=== PATIENT | female | born 1960 | race Caucasian/White ===

== ENCOUNTER → 2017-11-24 08:43 | Outpatient (CLI) | payer MEDICARE, SELFPAY ==
[2017-11-24 10:12] LABS: Anion Gap 9 (5-15); BUN 21 mg/dL (7-18); BUN/Creat Ratio 16.7 RATIO (10-20); Calcium,Total 8.7 mg/dL (8.5-10.1); Chloride 105 mmol/L (98-107); Creatinine, Serum 1.26 mg/dL (0.55-1.02); EST Glomerular Filtration Rate 46 mL/min (>60); Est Glom Filt Rate - Afr Amer 56 mL/min (>60); Glucose 127 mg/dL (74-106); Potassium 4.1 mmol/L (3.5-5.1); Sodium Level 141 mmol/L (136-145)
== END ==
PROVIDERS: Family Provider Student in an Organized Health Care Education/Training Program; PCP Student in an Organized Health Care Education/Training Program; Visit Provider Surgery
DX: Z01.818 Encounter for other preprocedural examination (principal)
CPT/HCPCS: 36415; 80048

== ENCOUNTER → 2017-12-11 11:41 | Outpatient (CLI) | payer MEDICARE, MEDICAID, SELFPAY ==
--- NOTE | 2017-12-11 11:42 | CT_ITS ---
STUDY: CTA NECK WITH CONTRAST REASON FOR EXAM: Female, 57 years old. Left carotid stenosis. Episode of syncope and dizziness. Prior smoking history. RADIATION DOSAGE (If Supplied By Facility): CTDIvol = ( 20.13 ) mGy, DLP = ( 563.44 ) mGycm TECHNIQUE: CT angiography with multi-detector data acquisition was performed from the aortic arch to the skull base following intravenous administration of 100 ml of Isovue 370 contrast. MIP images were reconstructed from the axial data set. Post-processing of the angiographic images was performed, with multiplanar reformation and 3D reconstruction. Individualized dose optimization techniques were used for this CT. COMPARISON: None. FINDINGS: AORTIC ARCH: There is atherosclerotic calcific plaque formation of the aortic arch and great vessels arising from the aortic arch, without a hemodynamically significant stenosis. There is a normal origin of the brachiocephalic, left common carotid, and left subclavian arteries. There is atherosclerotic changes at the origin of the great vessels. RIGHT CAROTID ARTERIES: There is calcified plaque along the course of the right common carotid artery without significant stenosis. Marked atherosclerotic changes of the carotid bifurcation and carotid bulb with greater than 70% stenosis. Normal origin of the right internal carotid (ICA) artery without a hemodynamically significant stenosis. Normal visualized cervical portion of the right internal carotid artery. There is narrowing of the origin of the right external carotid artery. LEFT CAROTID ARTERIES: There calcified plaques along the course of the left common carotid artery with less than 50% stenosis. There is an approximate 50% stenosis of the distal common carotid artery. There is extensive atherosclerotic plaque at the bifurcation extending into the carotid bulb with approximate 70% stenosis. Normal origin of the left internal carotid (ICA) artery without a hemodynamically significant stenosis. Normal visualized cervical portion of the left internal carotid artery. There is stenosis of the origin of the external carotid artery. VERTEBRAL ARTERIES: Normal bilateral vertebral arteries. CT/CTA Neck W/WO Contrast IMPRESSION: 1. Greater than 70% stenosis of the right carotid bulb and bifurcation. 2. Approximate 70% stenosis of the left carotid bulb and bifurcation. 3. Hemodynamically insignificant calcified plaque along the course of both common carotid arteries. 4. Stenoses of the bilateral external carotid arteries. 5. Normal vertebral arteries. Electronically Signed: Cayden Zuluaga DO at 17:21 EDT Tel [phone], Service support ,
[2017-12-11] MEDS: 0.9% Normal Saline 1,000 ML 500 ML IV (12:55)
[2017-12-11 14:25] VITALS: BP 168/66; PULSE 58; RESP 18; O2SAT 95
== END ==
PROVIDERS: Family Provider Student in an Organized Health Care Education/Training Program; PCP Student in an Organized Health Care Education/Training Program; Visit Provider Surgery
DX: I65.23 Occlusion and stenosis of bilateral carotid arteries (principal)
CPT/HCPCS: 70498; J7030; Q9967; A4216

== ENCOUNTER 2017-12-29 09:21 | Emergency (ER) | payer MEDICARE, MEDICAID, SELFPAY ==
[2017-12-29 09:24] VITALS: BP 108/61; PULSE 63; RESP 15; TEMP 36.7; O2SAT 93; BMI 35.9
--- NOTE | 2017-12-29 09:36 | ED.VISSUMM ---
- ER Visit Summary Date of Service: 12/29/17 Chief Complaint: Dizziness, headache History of Present Illness: The patient is a 57 F who is been having dizziness for the past couple of months. She states yesterday she did not feel well and had these dizzy episodes. She also had a fever of 102?F last night. She states that she has these dizzy episodes about once a week. She has been seeing Dr. Burch and he is decided to do a carotid endarterectomy of the left internal carotid. She had a CTA which showed about 70% stenosis. She saw him and he remarked in his note that he is not quite sure that the carotid arteries or the etiology of her dizziness but he still decided to go forward with surgery on January 09. She states this all started when she had a dizzy episode and had a syncopal episode while shopping. Currently she denies a cough or dysuria. She has had urinary frequency. Also of note, the patient took a whole pill of her carvedilol this morning when she only should take a half. Physical Examination: Vital signs reviewed. Blood pressure is 108/61. HEENT exam unremarkable. Heart is regular rate and rhythm without murmurs. Lungs are clear to auscultation. Abdomen is soft and nontender. Extremities reveal no edema. Skin exam normal. Neurologic exam normal. Test Results: CBC shows hemoglobin of 10.7. Sodium 135, chloride 95. Glucose 241. Creatinine 1.5. Urinalysis negative for infection. Emergency Department Course and Treatment: Patient was hydrated with IV fluids. Her blood pressure remained normal. The etiology of her dizziness is unclear. It could be from the carotids which is why she is seeing Dr. Burch. It could also be from overmedicating her self with anti-hypertensives. She will need to take her prescribed doses. She will also follow-up for her surgery on 11 days. Treatment Plan: [] Disposition: Discharge Impression: Dizziness This note was generated with [employer] dictation software. It may contain incorrect words, spelling, and punctuation that were not noted in review of the chart prior to signing ED Disposition - Plan for ED Patient: Chief Complaint: Dizziness Referrals: Jack Juarez DO [Primary Care Provider] -
[2017-12-29 10:20] LABS: BUN 18 mg/dL (7-18); Glucose 241 mg/dL (74-106)
[2017-12-29 10:21] LABS: Absolute Lymphocyte Count 1.23 X10^3/ul (0.83-4.51); Absolute Neutrophil Count 7.2 X10^3/uL (2.0-7.7); Anion Gap 15 (5-15); Basophil# 0.02 X10^3/uL; Basophil% 0.2 % (0-1); Calcium,Total 8.3 mg/dL (8.5-10.1); Chloride 95 mmol/L (98-107); Differential Indicated SCAN CRITERIA MET; EST Glomerular Filtration Rate 38 mL/min (>60); Est Glom Filt Rate - Afr Amer 46 mL/min (>60); Hematocrit 34.8 % (37-47); Hemoglobin 10.7 g/dl (12.0-15.0); Lymphocyte # 1.23 X10^3/ul (4.0); Lymphocyte % 13.1 % (19-41); Mean Corp Hgb Conc 30.7 g/gl (32-36); Mean Corpuscular Hgb 24.5 pg (27.0-32.0); Mean Corpuscular Volume 79.8 fL (81-99); Mean Platelet Vol. 9.6 fl (6.2-12.0); Monocyte# 0.95 X10^3/uL; Monocyte% 10.1 % (0-10); Neutrophil % 76.4 % (47-70); POSITIVE COUNT NO; POSITIVE DIFFERENTIAL NO; POSITIVE MORPHOLOGY YES; Platelet Count 199 K/mm3 (150-450); Potassium 3.7 mmol/L (3.5-5.1); RBC Distribution Width CV 17.7 % (11.6-14.6); RBC Distribution Width SD 51.9 fl (35.1-43.9); Red Blood Count 4.36 M/mm3 (4.2-5.4); Sodium Level 135 mmol/L (136-145); White Blood Count 9.4 K/mm3 (4.4-11.0)
[2017-12-29 11:47] VITALS: BP 118/50; PULSE 71; RESP 15; O2SAT 96
[2017-12-29 11:55] LABS: Red Blood Cells-Urine 0 SEEN /hpf (0-5)
[2017-12-29 11:58] LABS: Color, Urine Yellow (Yellow); Glucose, Dipstick 250 mg/dl (Normal); Ketone-Dipstick Negative (Negative); Leukocyte Esterase-Dipstick 25 /ul (Negative); Nitrite-Dipstick Negative (Negative); Occult Blood-Urine Negative /ul (Negative); Protein-Dipstick 15 mg/dl (Negative); Urine Clarity Sl. Cloudy (Clear); Urine Urobilinogen Normal (Normal)
[2017-12-29 11:59] LABS: Urine Bilirubin Dipstick 1 mg/dL (Negative)
[2017-12-29 12:06] LABS: Bacteria RARE /hpf (None Seen); Hyaline Cast 5-10 SEEN /lpf (0-5); Mucous, Urine 1+ /hpf (<or=2+); Squamous Epithelial Cells - UA 0-5 SEEN /hpf (5-10); White Blood Cells 0-5 SEEN /hpf (0-5)
--- NOTE | 2017-12-29 12:21 | ED.DEP ---
ED Disposition - Plan for ED Patient: Disposition: Home or Assisted Living Chief Complaint: Dizziness Instructions: ED Dizziness [facility] Referrals: Jack Juarez DO [Primary Care Provider] -
[2017-12-29 12:26] VITALS: BP 115/79; PULSE 65; RESP 15; O2SAT 96
== END 2017-12-29 12:27 | disposition home or self-care (01) ==
PROVIDERS: Emergency Provider Emergency Medicine; Family Provider Student in an Organized Health Care Education/Training Program; PCP Student in an Organized Health Care Education/Training Program
DX: R42 Dizziness and giddiness (principal); I10 Essential (primary) hypertension; Z79.82 Long term (current) use of aspirin; Z79.899 Other long term (current) drug therapy
CPT/HCPCS: 80048; 81001; 85025; 99283; J7040; A4216

== ENCOUNTER 2018-01-07 10:05 | Day surgery (SDC) | payer MEDICARE, SELFPAY ==
[2018-01-07] VITALS (7 sets, daily range): BP systolic 84–182; BP diastolic 45–112; PULSE 56–60; RESP 16–18; TEMP 36.3–36.9; O2SAT 91–100; BMI 35.9
--- NOTE | 2018-01-07 | IMM_PTH ---
PATIENT: NASIM OLIVA LOC: EN U#:[id number] AGE/SX: 57/F ROOM: RE01/07/[address]: Dr. Mario Burch MD : 1960 BED: DIS: 01/07/2018 SPEC #: [id number] RECD: 01/08/18 11:17 STATUS: JASON REEdyta #: [id number] HAFSA: 01/07/18 00:[address]: Mario Burch DEPT: IMMUNOHISTOCHEMISTRY RECD BY: Angela Palacio ENTERED: 01/08/18 11:18 SP TYPE: IMMUNO OTHR DR: Dr. Jack Juarez DO Tissues: A - Stomach, NOS Procedures: H Pylori (initial) PHYSICIAN & INSTITUTION [place] [address] SPECIMEN INFORMATION: Tissue Source: A ? Antral biopsy Clinical Info: Anemia Specimen Number: [id number] CPT code: 72440 METHODOLOGY: Deparaffinized sections of prefer/formalin-fixed tissue or PAP/DQ stained slides are incubated with monoclonal/polyclonal antibodies/oligonucleotide probes. Localization is made via biotin free immunoperoxidase method. Appropriate controls are performed and reacted as expected. Results on target cell population are indicated in the following table: RESULTS: ANTIBODY / CLONE RESULT Block A H Pylori (polyclonal) negative These tests were developed and their performance characteristics determined by [facility]. They may not have been cleared or approved by the U.S. Food and Drug Administration. The FDA has determined that such clearance or approval is not necessary. INTERPRETATION: A. Antral biopsy: Negative for Helicobacter pylori organisms. SJ:akin 01/09/18
--- NOTE | 2018-01-07 | GASB_PTH ---
PATIENT: NASIM OLIVA LOC: EN U#:[id number] AGE/SX: 57/F ROOM: RE01/07/[address]: Dr. Mario Burch MD : 1960 BED: DIS: 01/07/2018 SPEC #: [id number] RECD: 01/07/18 14:41 STATUS: JASON CLIVE #: [id number] HAFSA: 01/07/18 00:[address]: Mario Burch DEPT: SURGICAL PATHOLOGY RECD BY: Rudolph Elias ENTERED: 01/07/18 14:42 SP TYPE: Gastric Bx OTHR DR: Dr. Jack Juarez, Tissues: A - Gastric mucous membrane B - Gastric mucous membrane Procedures: Surgery Specimen Level IV HEADER OPERATION: Colonoscopy, EGD PRE-OP DIAGNOSIS: Anemia TISSUE SUBMITTED: A ? Antral biopsy for H. pylori and path, B ? Gastric polyp biopsy MICROSCOPIC DIAGNOSIS A. Antral biopsy: Mild gastritis. B. Gastric polyp, biopsy: Fundic gland polyp. ALDAIR:akin 01/08/18 COMMENT A. The results of immunohistochemistry for Helicobacter pylori will be reported separately ([id number]). MICROSCOPIC DESCRIPTION Slides are reviewed. A. The specimen shows fragments of gastric mucosa with chronic inflammatory cell infiltrates in the lamina propria consisting of lymphocytes and plasma cells, consistent with mild chronic gastritis. GROSS DESCRIPTION A - Received in fixative is one container labeled with the patient's name and designated antral biopsy. The specimen consists of one irregular fragment of light lopez soft tissue that measures 0.3 x 0.3 x 0.1 cm. The specimen is totally submitted in one cassette. B - Received in fixative is one container labeled with the patient's name and designated gastric polyp biopsy. The specimen consists of one irregular fragment of light lopez soft tissue that measures 0.3 x 0.3 x 0.1 cm. The specimen is totally submitted in one cassette. / SJ:akin 01/07/18 TC:3 CPT: 80238 x2
--- NOTE | 2018-01-07 10:54 | SUR.PREOP ---
500ML SALINE ENEMA GIVEN DUE TO PT NOT CLEAR
--- NOTE | 2018-01-07 13:03 | PCM.OPRPT ---
Problem List (1) Anemia Status: Acute Qualifiers: Anemia type: unspecified type Qualified Code(s): D64.9 - Anemia, unspecified Report of Operation Date of Procedure: 01/07/18 Pre-Operative Diagnosis: Carotid stenosis, preoperative laboratory demonstrating anemia Post-Operative Diagnosis: Carotid stenosis, anemia of undetermined etiology Surgery/Procedure Performed:: Esophagogastroduodenoscopy with biopsies cold forcep. Colonoscopy Description of Surgical Findings:: Amount informed consent was obtained. 57-year-old female taken to the endoscopy suite. Her oropharynx anesthetized with Topex. She was placed in left lateral decubitus position. Throughout both the upper and lower procedure she received a total of 100 g Demerol and 3.5 g of Versed is intravenous sedation. Flexible gastroscope was inserted into the esophageal inlet. Proximal mid distal esophagus not remarkable EG junction at 36 cm a small hiatal hernia noted. No evidence of bleeding. The scope was advanced in the stomach minimal erythema of the antrum noted. Scope was advanced through the pylorus into the first and easily the second portions of the duodenum no evidence of blood loss. The scope was withdrawn back into the stomach retroflexed the EG junction cardia inspected. A small hiatal hernia noted. The cardia was otherwise unremarkable. Greater curvature had scattered fundic polyps. I readvanced the scope took an antral biopsy with cold forceps. I took a biopsy of 1 of the polyps cold forceps. Hemostasis was intact excess fluid and air was aspirated free the scope was carefully withdrawn without additional abnormality Digital rectal exam performed. Lax anal tone. No evidence of bleeding. Flexible consequence of the rectum and advanced to a tortuous elongated colon. The patient had to be placed supine with transabdominal pressure and then in the left lateral decubitus position again to get past the hepatic flexure. Fortunately I was able to achieve the cecum. Unfortunate the bowel prep was only fair. Small polyps may have been overlooked due to still some semisolid stool located throughout the colon. I did achieve the cecum. I did not see any evidence of acute or chronic bleeding. The scope was carefully withdrawn from the ascending transverse descending and sigmoid colon. Where possible I irrigated the cuellar for better inspection. There was diverticulosis of the sigmoid. No evidence of a inflammatory change. The scope was withdrawn to the rectum retroflex the anorectal verge inspected this was not remarkable. Excess fluid and air was aspirated free the procedure was completed she tolerated it well. Impression Small hiatal hernia. Minimal antral erythema. No evidence for upper gastrointestinal blood loss. Fair bowel prep. Tortuous elongated colon. Sigmoid diverticulosis. We will proceed with planned carotid endarterectomy Will recommend follow-up colonoscopy in 1-2 years based upon the only fair bowel prep. Previous colonoscopy according to the patient at least 5-10 years ago. No family history of colon cancer. Meds were given initially at 1228. The upper scope started at 1231. The upper scope stopped at 1233. The lower scope started at 1237. The cecum was reached at 1253. The procedure was completed at 1300. CC: Dr. Larry Burch M.D., F.A.C.S. Type of Anesthesia:: IV Sedation
[2018-01-08 08:06] LABS: Bedside Glucose 143 mg/dL (70-110)
== END 2018-01-07 13:58 | disposition home or self-care (01) ==
LOC: EN 10:05 → AC 10:07
PROVIDERS: Family Provider Student in an Organized Health Care Education/Training Program; PCP Student in an Organized Health Care Education/Training Program; Visit Provider Surgery
PROC: 0DJD8ZZ Inspection of Lower Intestinal Tract, Via Natural or Artificial Opening Endoscopic (ICD-10-PCS; CPT 45378; principal; 2018-01-07 11:25)
DX: K29.50 Unspecified chronic gastritis without bleeding (principal); K31.7 Polyp of stomach and duodenum; K44.9 Diaphragmatic hernia without obstruction or gangrene; K57.30 Diverticulosis of large intestine without perforation or abscess without bleeding; K56.2 Volvulus; D64.9 Anemia, unspecified; I65.23 Occlusion and stenosis of bilateral carotid arteries; K21.9 Gastro-esophageal reflux disease without esophagitis; I10 Essential (primary) hypertension; E11.9 Type 2 diabetes mellitus without complications; F32.9 Major depressive disorder, single episode, unspecified; F41.9 Anxiety disorder, unspecified; H54.62 Unqualified visual loss, left eye, normal vision right eye; Z95.1 Presence of aortocoronary bypass graft; Z95.5 Presence of coronary angioplasty implant and graft; Z79.01 Long term (current) use of anticoagulants; Z79.82 Long term (current) use of aspirin; Z79.4 Long term (current) use of insulin; Z79.84 Long term (current) use of oral hypoglycemic drugs; Z79.899 Other long term (current) drug therapy
CPT/HCPCS: 43239; 45378; 82962; 88305; 88342; 99152; 99153; J7120

== ENCOUNTER 2018-01-09 05:55 | Inpatient (IN) | payer MEDICARE, MEDICAID, SELFPAY ==
[2018-01-02 13:22] VITALS: BP 155/73; PULSE 51; RESP 16; TEMP 36.4; O2SAT 96; BMI 35.5
[2018-01-02 13:49] LABS: Hematocrit 33.9 % (37-47); Hemoglobin 10.8 g/dl (12.0-15.0); Mean Corp Hgb Conc 31.9 g/gl (32-36); Mean Corpuscular Hgb 25.5 pg (27.0-32.0); Mean Platelet Vol. 9.6 fl (6.2-12.0); Platelet Count 245 K/mm3 (150-450); RBC Distribution Width CV 17.6 % (11.6-14.6); RBC Distribution Width SD 50.6 fl (35.1-43.9); Red Blood Count 4.24 M/mm3 (4.2-5.4); White Blood Count 5.3 K/mm3 (4.4-11.0)
[2018-01-02 13:54] LABS: Scan Indicated on CBC? Y/N NO
[2018-01-02 14:10] LABS: Anion Gap 6 (5-15); BUN 12 mg/dL (7-18); BUN/Creat Ratio 10.6 RATIO (10-20); Calcium,Total 8.8 mg/dL (8.5-10.1); Chloride 103 mmol/L (98-107); Creatinine, Serum 1.13 mg/dL (0.55-1.02); EST Glomerular Filtration Rate 53 mL/min (>60); Est Glom Filt Rate - Afr Amer 64 mL/min (>60); Estimated Creatinine Clearance 46.86 ml/min; Glucose 115 mg/dL (74-106); Potassium 4.1 mmol/L (3.5-5.1); Sodium Level 139 mmol/L (136-145)
[2018-01-02 14:18] LABS: Hemoglobin A1c 7.6 % (4.2-6.3)
[2018-01-09] VITALS (35 sets, daily range): BP systolic 87–226; BP diastolic 45–102; PULSE 58–82; RESP 16–18; TEMP 36.1–36.9; O2SAT 92–100; BMI 35.5; BMI 36.4
[2018-01-09 06:25] LABS: Bedside Glucose 199 mg/dL (70-110)
--- NOTE | 2018-01-09 06:57 | PCM.DC.GS ---
Discharge Diet: Light diet - advance as tolerated - if you have questions about your diet instructions, please talk to you doctor., 1600 Calorie Control Diet Discharge Activity: May Not Drive - for 1 week or while taking narcotic pain medicine. May shower in (days): 3 - You may shower on Sunday Lifting Restrictions: 10 pounds Call your doctor if your incision/area has: Continuous Slow Oozing, Sudden Increased Bleeding, Increased Pain/ Swelling, Increased Redness, Foul Smelling Discharge Call your doctor if you observe: Fever of 101 or Higher Suture Line Care: Avoid Pulling/Pushing, Avoid Pinching/Bending Additional Dressing/Incision Instructions:: You may protect the incision with dry gauze and tape. If otherwise comfortable you may leave it open to air. Remove the Steri-Strips in [address] Allergies/Adverse Reactions: Allergies clindamycin Allergy (Mild, Verified 01/09/18 06:06) Unknown milk Adverse Reaction (Verified 01/09/18 06:06) Unknown Medications to take at Discharge aspirin 81 mg tablet,delayed release 81 mg PO QDAY 11/24/17 atorvastatin 40 mg tablet 40 mg PO QDAY 11/24/17 clopidogrel 75 mg tablet 75 mg PO QDAY 11/24/17 enalapril maleate 20 mg tablet 20 mg PO BID tab 11/24/17 fluoxetine 40 mg capsule 40 mg PO QDAY 11/24/17 hydrochlorothiazide 25 mg tablet 25 mg PO QAM 11/24/17 isosorbide mononitrate ER 60 mg tablet,extended release 24 hr 60 mg PO QAM 11/24/17 metformin 500 mg tablet 500 mg PO BID 11/24/17 oxybutynin chloride 5 mg tablet 5 mg PO TID 11/24/17 ranolazine ER 500 mg tablet,extended release,12 hr 500 mg PO Q12H 11/24/17 carvedilol 12.5 mg tablet 6.25 mg PO BID tab 12/19/17 Alprazolam [Xanax] 0.5 mg PO QHS 12/29/17 Bupropion HCl 75 mg PO BID 12/29/17 Insulin Glargine,Hum.rec.anlog [Lantus] 40 unit SQ 1200 12/29/17 Lansoprazole [Prevacid] 30 mg PO DAILY 12/29/17 Hydrocodone Bitart/Apap 5-325 [[place] 5MG-325MG] 1 tab PO Q6H PRN PRN 3 Days #8 tab 01/09/18 The following prescriptions were given: Hydrocodone Bitart/Apap 5-325 [[place] 5MG-325MG] 1 tab PO Q6H PRN PRN 3 Days #8 tab PRN Reason: Pain Primary Care Physician: Jack Juarez DO [Primary Care Provider] - Test Results: Test results from this visit will be discussed in further detail at your follow-up appointment, if applicable. Please Follow Up With: Maroi Burch MD - [phone] When: Call to make an appointment to be seen in about 10 days.
--- NOTE | 2018-01-09 07:00 | OP.PCM_ITS ---
Problem List (1) Carotid stenosis, bilateral Status: Acute Report of Operation Date of Procedure: 01/09/18 Pre-Operative Diagnosis: Severe stenosis left extracranial internal carotid Post-Operative Diagnosis: Same Surgery/Procedure Performed:: Right radial arterial line placement. Left carotid endarterectomy with bovine patch angioplasty Description of Surgical Findings:: Timeout and informed consent was obtained. 57-year-old female at the bedside had an Kevyn test performed on the right wrist. This demonstrated adequate ulnar flow. The wrist was gently extended prepped with Betadine. Ultrasound was used to inject 1 cc of 1% lidocaine. A 20-gauge aero kit Angiocath under ultrasound guidance was advanced into the artery was Seldinger wire technique was nicely advanced. The catheter was secured skin with interrupted 3-0 silk. OpSite dressing applied. Tito wrap applied. She tolerated the procedure well with a viable hand the completion no apparent complication. She is subsequently taken to the operating for definitive left carotid surgery. The patient was taken to the operating room. She was placed supine on the table. General general endotracheal intubation anesthesia. Ancef 2 g are given intravenously preoperatively. The left neck was sterilely prepped and draped. An oblique incision was made along the anterior border the sternocleidomastoid. Sharp dissection was carried down through the subcutaneous tissue. Dissection was tedious due to the amount of fibrofatty tissue and lymphatic tissue. Hemostasis was obtained with multiple hemoclips and 3-0 Vicryl ligatures were indicated. The internal jugular vein identified reflected laterally. Crossing facial veins were secured with interrupted 3-0 Vicryl. The common carotid was identified dissected free the vagus nerve identified and protected. Cephalad dissection was performed. The hypoglossal nerve identified and protected. Dissection performed on the internal carotid and then circumferential dissection was achieved. A Dacron tape and the bowel was placed. Circumferential dissection was performed of the external carotid and a vessel loop was placed. The superior thyroid was secured with a Field tie of 3-0 Vicryl. Circumferential control was obtained of the common carotid with a Field tie of Dacron tape. The patient received 10,000 units of heparin. After adequate circling time peripheral vascular clamps are placed on the internal common and external carotid 11 blade was used to make an arteriotomy the plaque at the proximal portion of the internal carotid and carotid bulb was highly calcific. Significant effort was required use Field scissors to dissect through this area. A #8 USCI style shunt was placed cephalad and proximally. Attention would not fit. Time to place the shunt was 3 minutes. It was noted that C proximally did dip below 20% level during that 3 minutes but then immediately rebounded. The shunt was clearly patent. An endarterectomy was performed the layer of the external elastic lamina. The plaque was sharply transected proximally. It was nicely feathered at the internal carotid. A inversion endarterectomy was performed of the external carotid. Further debris was carefully removed. The vessel was irrigated. A bovine patch 0.8 x 8 cm was used as a patch angioplasty. It was shaped to form and a patch angioplasty created with running 6-0 Prolene. Prior to completion again the vessel was irrigated the shunt was removed the patch angioplasty was completed after confirmation of good retrograde flow from the internal carotid good antegrade flow from the external carotid and common carotid. Initial clamps removed external carotid common carotid find the internal carotid. A couple repair sutures of 7-0 Prolene were required for complete hemostasis. Time for shunt removal was 3 minutes and 6 seconds. The patient cerebral oximetry did dip again during that time and immediately rebounded. The patient received in aliquots total 30 mg of protamine his reversal. The patient preoperatively was on aspirin and Plavix. She still had diffuse oozing. I placed FloSeal in the neck this assisted with achieving complete hemostasis. The neck was then closed with a running 3-0 Vicryl approximate the platysma. The skin edges proximate running septic or 5-0 Vicryl. The kaelyn- incisional areas anesthetized with 10 cc of 0.5% Marcaine. Steri-Strips Telfa tape dressings applied. Sponge and instrument and needle counts were reported to the surgeon to be correct. Specimens plaque. Drains none. Blood loss 200 cc. She awoke was felt to be neurologically intact on the table. She was taken to the recovery area in satisfactory condition. There were no apparent complications. Mario Burch M.D., F.A.C.S.
--- NOTE | 2018-01-09 07:15 | PLAQ_PTH ---
PATIENT: NASIM OLIVA LOC: PCU U#:[id number] AGE/SX: 57/F ROOM: [facility] RE01/09/[address]: Dr. Mario Burch MD : 1960 BED: 1 DIS: 01/10/2018 SPEC #: [id number] RECD: 01/09/18 13:53 STATUS: JASON RE #: [id number] HAFSA: 01/09/18 07:[address]: Mario Burch DEPT: SURGICAL PATHOLOGY RECD BY: Lisa Ng ENTERED: 01/09/18 14:20 SP TYPE: PLAQUE OTHR DR: Dr. Jack Juarez, Tissues: PLAQUE Procedures: Decalcification bone/plaque Surgery Specimen Level III HEADER OPERATION: Left carotid endarterectomy with patchy angioplasty and arterial line placement PRE-OP DIAGNOSIS: Carotid stenosis TISSUE SUBMITTED: Plaque left carotid MICROSCOPIC DIAGNOSIS Left carotid artery plaque, endarterectomy: Calcified atheromatous plaque consistent with severe stenosis. AM:akin 01/16/18 GROSS DESCRIPTION Received in fixative is one container labeled with the patient's name and designated plaque left carotid. The specimen consists of a Y-shaped piece of previously opened, lopez, indurated tissue measuring 2.5 cm in length and up to 1 cm in diameter. The specimen cuts with gritty sensation. The lumen shows almost complete obliteration. The entire specimen is submitted in one cassette after decalcification. / SJ:akin 01/09/18 TC:5 CPT: 73321, 85848
[2018-01-09] MEDS: Cefazolin 2 GM in 0.9% Normal Saline 100 ML IV (07:20)
[2018-01-09] MEDS: Heparin Injection (Vial) 5,000 UNIT/ML VIAL 5000 UNIT (09:00)
[2018-01-09] MEDS: Bupivacaine Mpf 0.5% 30 ML VIAL (09:36)
[2018-01-09 10:51] LABS: Bedside Glucose 184 mg/dL (70-110)
--- NOTE | 2018-01-09 11:17 | SUR.PHASEI ---
PRESSURE HELD TO LEFT NECK OPERATIVE SITE BY RN FOR APPROXIMATELY [address] Benjamin MOSHER.
[2018-01-09] MEDS: Isosorbide Mononitrate 60 MG Tablet PO (11:21)
[2018-01-09] MEDS: Lactated Ringers 1,000 ML 30 ML IV (16:36)
[2018-01-09] MEDS: Cefazolin 1 GM/50 ML BAG IV ×2 (16:48→23:41)
--- NOTE | 2018-01-09 17:30 | CASEMGMT ---
SEE RN WILLIAM ASSESS LINK: D/C PLAN: HOME Intro role to RN WILLIAM. Pt resting in bed, awake/alert/oriented. Pt states is independent @ home w/ADL's, occaionally using a cane. Pt wishes to return home upon discharge. States she has concerns re: finances and medical bills and would like to talk to SW. Consult made. Pt denies other needs at this time. CM to follow for any discharge planning needs that may arise. Pranav MACHADON TANVI CM
[2018-01-09] MEDS: hydroCHLOROthiazide 25 MG Tablet PO (17:32)
[2018-01-09] MEDS: Atorvastatin Calcium 40 MG Tablet PO (17:32)
[2018-01-09] MEDS: Oxybutynin 5 MG Tablet PO ×2 (17:32→21:36)
[2018-01-09] MEDS: FLUoxetine 20 MG Capsule 40 MG PO (17:32)
[2018-01-09] MEDS: Aspirin E.C. 81 MG Tablet PO (17:32)
[2018-01-09] MEDS: Pantoprazole Sodium 40 MG Tablet PO (17:32)
[2018-01-09 17:46] LABS: Bedside Glucose 161 mg/dL (70-110)
--- NOTE | 2018-01-09 18:28 | PCM.CAROT ---
General Carotid Note - Subjective Post-Op Day #: 0 - Objective Vital Signs Temp Pulse Resp BP Pulse Ox 97.5 F L 63 18 94/48 L 92 01/09/18 17:28 01/09/18 17:28 01/09/18 17:28 01/09/18 17:28 01/09/18 17:28 Neck: Supple Neurological: Cranial nerves II-XII grossly intact - Assessment/Plan Pt appears very stable Continue care
[2018-01-09] MEDS: Ranolazine 500 MG Tablet PO (21:36)
[2018-01-09] MEDS: ALPRAZolam 0.5 MG Tablet PO (21:36)
[2018-01-09] MEDS: buPROPion 75 MG Tablet PO (21:36)
[2018-01-09 22:11] LABS: Bedside Glucose 172 mg/dL (70-110)
[2018-01-10 01:30] VITALS: BP 160/70; PULSE 74; RESP 18; TEMP 36.3; O2SAT 94
[2018-01-10 03:30] VITALS: BP 134/48; PULSE 69; RESP 18; TEMP 36.7; O2SAT 92
[2018-01-10 04:18] VITALS: PULSE 73
[2018-01-10] MEDS: Oxybutynin 5 MG Tablet PO (05:44)
--- NOTE | 2018-01-10 05:53 | PCM.CAROT ---
General Carotid Note - Subjective Post-Op Day #: 1 - Objective Vital Signs Temp Pulse Resp BP Pulse Ox 98.0 F 73 18 134/48 H 92 01/10/18 03:30 01/10/18 04:18 01/10/18 03:30 01/10/18 03:30 01/10/18 03:30 Neck: Supple, - - wound clean and dry Neurological: Cranial nerves II-XII grossly intact Cardiovascular: Regular rate, Regular Rhythm - Pt ready for discharge. Will follow up on anemia as outpt
[2018-01-10 06:56] LABS: Bedside Glucose 91 mg/dL (70-110)
[2018-01-10 06:57] VITALS: BP 153/59; PULSE 63; RESP 18; TEMP 36.4; O2SAT 93
[2018-01-10 07:31] VITALS: PULSE 60
[2018-01-10 07:45] VITALS: O2SAT 84
--- NOTE | 2018-01-10 08:14 | CPS ---
pt placed back on 1lpm. sat to 95% on 1. nurse aware of change
[2018-01-10] MEDS: Carvedilol 6.25 MG Tablet PO (09:33)
[2018-01-10] MEDS: hydroCHLOROthiazide 25 MG Tablet PO (09:33)
[2018-01-10] MEDS: Aspirin E.C. 81 MG Tablet PO (09:33)
[2018-01-10] MEDS: Isosorbide Mononitrate 60 MG Tablet PO (09:33)
[2018-01-10] MEDS: FLUoxetine 20 MG Capsule 40 MG PO (09:34)
[2018-01-10] MEDS: Pantoprazole Sodium 40 MG Tablet PO (09:34)
[2018-01-10] MEDS: Atorvastatin Calcium 40 MG Tablet PO (09:34)
[2018-01-10] MEDS: buPROPion 75 MG Tablet PO (09:35)
[2018-01-10] MEDS: Lisinopril 20 MG Tablet PO (09:35)
[2018-01-10] MEDS: Ranolazine 500 MG Tablet PO (09:35)
== END 2018-01-10 10:03 | disposition home or self-care (01) | DRG 37 ==
LOC: ACINP 05:55 → PCU 01-10 07:02
PROVIDERS: Admitting Provider Surgery; Family Provider Student in an Organized Health Care Education/Training Program; PCP Student in an Organized Health Care Education/Training Program; Visit Provider Surgery
PROC: 03CL0ZZ Extirpation of Matter from Left Internal Carotid Artery, Open Approach (ICD-10-PCS; CPT 35301; principal; 2018-01-09 06:55)
DX: I65.23 Occlusion and stenosis of bilateral carotid arteries (principal); K56.2 Volvulus; D64.9 Anemia, unspecified; Z79.899 Other long term (current) drug therapy; Z79.4 Long term (current) use of insulin; I10 Essential (primary) hypertension; Z87.891 Personal history of nicotine dependence; K29.50 Unspecified chronic gastritis without bleeding; K31.7 Polyp of stomach and duodenum; K44.9 Diaphragmatic hernia without obstruction or gangrene; K57.30 Diverticulosis of large intestine without perforation or abscess without bleeding; K21.9 Gastro-esophageal reflux disease without esophagitis; E11.9 Type 2 diabetes mellitus without complications; F32.9 Major depressive disorder, single episode, unspecified; F41.9 Anxiety disorder, unspecified; H54.62 Unqualified visual loss, left eye, normal vision right eye; Z95.5 Presence of coronary angioplasty implant and graft
CPT/HCPCS: 80048; 82962; 83036; 85027; 88304; 88305; 88311; 88342; 93005; 99152; 99153; J7040; J7120; A4216; J2405

== ENCOUNTER → 2018-01-18 11:16 | Outpatient (CLI) | payer MEDICARE, SELFPAY ==
[2018-01-18 11:46] LABS: Hematocrit 30.5 % (37-47); Hemoglobin 9.4 g/dl (12.0-15.0); Mean Corp Hgb Conc 30.8 g/gl (32-36); Mean Corpuscular Hgb 25.2 pg (27.0-32.0); Mean Corpuscular Volume 81.8 fL (81-99); Mean Platelet Vol. 9.3 fl (6.2-12.0); Platelet Count 284 K/mm3 (150-450); RBC Distribution Width CV 17.6 % (11.6-14.6); RBC Distribution Width SD 51.4 fl (35.1-43.9); Red Blood Count 3.73 M/mm3 (4.2-5.4); White Blood Count 4.7 K/mm3 (4.4-11.0)
[2018-01-18 11:50] LABS: Scan Indicated on CBC? Y/N NO
[2018-01-18 12:39] LABS: Ferritin 7 ng/mL (8-252); Iron 22 ug/dL (50-170); Iron Binding Capacity,Total 364 ug/dL (250-450)
== END ==
PROVIDERS: Family Provider Student in an Organized Health Care Education/Training Program; PCP Student in an Organized Health Care Education/Training Program; Visit Provider Surgery
DX: D64.9 Anemia, unspecified (principal)
CPT/HCPCS: 36415; 82728; 83540; 83550; 85027

== ENCOUNTER → 2018-01-24 08:18 | Outpatient (CLI) | payer MEDICARE, MEDICAID, SELFPAY | PROVIDERS: Family Provider Student in an Organized Health Care Education/Training Program; PCP Student in an Organized Health Care Education/Training Program; Visit Provider Surgery | DX: K57.10 Diverticulosis of small intestine without perforation or abscess without bleeding (principal); D64.9 Anemia, unspecified | CPT/HCPCS: 74250 ==

== ENCOUNTER → 2018-01-31 09:35 | Outpatient (CLI) | payer MEDICARE, MEDICAID, SELFPAY ==
--- NOTE | 2018-01-31 10:49 | CDU_ITS ---
Reason For Study: STENOSIS Rt. Velocities/BP Lt. Velocities/BP Prox CCA 91.1/16.5 cm/sec. Prox CCA 49.1/8.64 cm/sec. Mid CCA 69.8/15.8 cm/sec. Mid CCA 81.5/14.7 cm/sec. Dist CCA 64.5/16.4 cm/sec. Dist CCA 69.8/12.9 cm/sec. Prox ICA 223/58.9 cm/sec. Prox ICA 102/22.8 cm/sec. Mid ICA 199/48.1 cm/sec. Mid ICA 99.8/25.1 cm/sec. Dist ICA 101/26.4 cm/sec. Dist ICA 85/27.6 cm/sec. Rt. ICA/CCA = 3.20. Lt. ICA/CCA = 1.46. Prox ECA 179/17 cm/sec. Prox ECA 37.7 cm/sec. Rt. Vert. 54.6/17.3 cm/sec. Lt. Vert. 60.1/14.5 cm/sec. Right Extracranial There is heterogeneous, irregular atherosclerotic plaque noted in the right common carotid artery. There is heterogeneous, irregular atherosclerotic plaque noted in the right internal carotid artery. The atherosclerotic plaque causes acoustic shadowing. There is heterogeneous, irregular atherosclerotic plaque noted in the right external carotid artery. Antegrade flow is noted in the right vertebral artery. Left Extracranial There is heterogeneous, irregular atherosclerotic plaque noted in the left common carotid artery. There is homogeneous, irregular atherosclerotic plaque noted in the left internal carotid artery. There is homogeneous, smooth atherosclerotic plaque noted in the left external carotid artery. Antegrade flow is noted in the left vertebral artery. Procedure Carotid Duplex [id number]. Exam performed in department. Image #47 is Left Proximal ICA. Interpretation Summary Extensive calcific plague with shadowing right distal common carotid/proximal internal carotid with >70% stenosis. Moderate disease right external carotid Moderate, calcific smooth plague left proximal common carotid Post operative change of the left carotid bulb and proximal internal carotid with <50% stenosis. Normal flow left external carotid Patent and antegrade vertebrals bilaterally Ordering Physician: Mario Burch Referring Physician: Mario Burch Performed By: Quinten HERRON [facility] Claudine and Student
== END ==
PROVIDERS: Family Provider Student in an Organized Health Care Education/Training Program; PCP Student in an Organized Health Care Education/Training Program; Visit Provider Surgery
DX: I65.23 Occlusion and stenosis of bilateral carotid arteries (principal)
CPT/HCPCS: 93880

== ENCOUNTER 2018-06-24 05:55 | Inpatient (IN) | payer MEDICARE, MEDICAID, SELFPAY ==
[2018-05-22 16:31] VITALS: BMI 36.1
[2018-06-17 10:49] VITALS: BMI 36.1
[2018-06-17 11:00] VITALS: BP 151/68; PULSE 55; RESP 16; TEMP 37; O2SAT 94; BMI 36.3
--- NOTE | 2018-06-17 11:34 | SDCEKG_ITS ---
Test Reason : Blood Pressure : / mmHG Vent. Rate : 051 BPM Atrial Rate : 051 BPM P-R Int : 162 ms QRS Dur : 090 ms QT Int : 470 ms P-R-T Axes : 019 008 084 degrees QTc Int : 433 ms Sinus bradycardia Low voltage QRS Nonspecific T wave abnormality Abnormal ECG Confirmed by EVELIA COLUNGA, ANGEL ([id number]), industrial editor ANTOINETTE WEEMS ([id number]) on 06/20/2018 8:22:02 AM Referred By: Mario Burch Confirmed By:ANGEL ALTAMIRANO MD
[2018-06-17 12:16] LABS: Hematocrit 38.6 % (37-47); Hemoglobin 12.2 g/dl (12.0-15.0); Mean Corp Hgb Conc 31.6 g/gl (32-36); Mean Corpuscular Hgb 26.9 pg (27.0-32.0); Mean Platelet Vol. 9.5 fl (6.2-12.0); Platelet Count 221 K/mm3 (150-450); RBC Distribution Width CV 15.9 % (11.6-14.6); RBC Distribution Width SD 49.9 fl (35.1-43.9); Red Blood Count 4.54 M/mm3 (4.2-5.4); Scan Indicated on CBC? Y/N NO; White Blood Count 6.3 K/mm3 (4.4-11.0)
[2018-06-17 12:33] LABS: Hemoglobin A1c 8.2 % (4.2-6.3)
[2018-06-17 12:35] LABS: Partial Thromboplast Time 24.2 Seconds (24.1-36.2); Prothrombin Time (Protime)PT. 12.9 SECONDS (11.7-14.9)
[2018-06-17 12:42] LABS: AST(SGOT) 11 U/L (15-37); Alanine Aminotransfer ALT/SGPT 19 U/L (13-56); Albumin, Serum 3.3 g/dL (3.2-5.0); Alkaline Phosphatase 102 U/L (45-117); Anion Gap 12 (5-15); BUN 16 mg/dL (7-18); BUN/Creat Ratio 15.5 RATIO (10-20); Calcium,Total 9.2 mg/dL (8.5-10.1); Chloride 100 mmol/L (98-107); Creatinine, Serum 1.03 mg/dL (0.55-1.02); EST Glomerular Filtration Rate 58 mL/min (>60); Est Glom Filt Rate - Afr Amer 71 mL/min (>60); Estimated Creatinine Clearance 51.41 ml/min; Globulin 4.2 g/dL (2.2-4.2); Glucose 80 mg/dL (74-106); Protein, Total 7.5 g/dL (6.4-8.2); Sodium Level 138 mmol/L (136-145)
[2018-06-24] VITALS (20 sets, daily range): BP systolic 101–168; BP diastolic 49–70; PULSE 58–69; RESP 16–18; TEMP 36.2–37.2; O2SAT 85–100; BMI 36.3
[2018-06-24 06:31] LABS: Bedside Glucose 110 mg/dL (70-110)
--- NOTE | 2018-06-24 07:52 | DCINST_ITS ---
<Mario Burch - Last Filed: 06/24/18 07:51> Discharge Diet: Light diet - advance as tolerated - if you have questions about your diet instructions, please talk to you doctor. Discharge Activity: May Not Drive - for 5-7 days or while taking narcotic pain medicine. May shower in (days): 3 - Shower on Lifting Restrictions: 10 pounds Call your doctor if your incision/area has: Continuous Slow Oozing, Sudden Increased Bleeding, Increased Pain/ Swelling, Increased Redness, Foul Smelling Discharge Call your doctor if you observe: Fever of 101 or Higher Suture Line Care: Avoid Pulling/Pushing, Avoid Pinching/Bending Additional Dressing/Incision Instructions:: Leave steri-strips in place for 1 week. Allergies/Adverse Reactions: Allergies clindamycin Allergy (Mild, Verified 06/17/18 10:46) Unknown milk Adverse Reaction (Verified 06/17/18 10:46) Unknown Medications to take at Discharge aspirin 81 mg tablet,delayed release 81 mg PO QDAY 11/24/17 atorvastatin 40 mg tablet 40 mg PO QDAY 11/24/17 clopidogrel 75 mg tablet 75 mg PO QDAY 11/24/17 enalapril maleate 20 mg tablet 20 mg PO BID tab 11/24/17 fluoxetine 40 mg capsule 40 mg PO QDAY 11/24/17 hydrochlorothiazide 25 mg tablet 25 mg PO QAM 11/24/17 isosorbide mononitrate ER 60 mg tablet,extended release 24 hr 60 mg PO QAM 11/24/17 metformin 500 mg tablet 500 mg PO BID 11/24/17 oxybutynin chloride 5 mg tablet 5 mg PO TID 11/24/17 ranolazine ER 500 mg tablet,extended release,12 hr 500 mg PO Q12H 11/24/17 carvedilol 12.5 mg tablet 6.25 mg PO BID tab 12/19/17 Alprazolam [Xanax] 0.5 mg PO QHS 12/29/17 Bupropion HCl 75 mg PO BID 12/29/17 Insulin Glargine,Hum.rec.anlog [Lantus] 40 unit SQ 1200 12/29/17 Lansoprazole [Prevacid] 30 mg PO DAILY 12/29/17 Ferrous Sulfate 325 mg PO DAILY 06/17/18 Primary Care Physician: Jack Juarez DO [Primary Care Provider] - Test Results: Test results from this visit will be discussed in further detail at your follow- up appointment, if applicable. Please Follow Up With: Mario Burch MD - [phone] When: Call to make an appointment to be seen in about 10 days. <Radha Crowe - Last Filed: 06/25/18 14:27> Please follow up with your Primary Care Physician in: 1 week to discuss sleep study for possible sleep apnea Test Results: Test results from this visit will be discussed in further detail at your follow-up appointment, if applicable. Proposed Discharge Date: 06/25/18
--- NOTE | 2018-06-24 07:54 | OP.PCM_ITS ---
Problem List (1) Carotid stenosis, right Status: Acute Report of Operation Date of Procedure: 06/24/18 Pre-Operative Diagnosis: Critical right carotid stenosis Post-Operative Diagnosis: Same Surgery/Procedure Performed:: Right radial arterial line placement. Right carotid endarterectomy with patch angioplasty Description of Surgical Findings:: Timeout and informed consent was obtained. At the bedside Kevyn test performed demonstrating adequate ulnar flow. The right wrist was gently extended. Sprayed with Betadine. Ultrasound was used to identify the right radial artery. Under ultrasound guidance 1% lidocaine was instilled as a local anesthetic. A 20-gauge Angiocath was advanced into the artery however I could not get that 1 to advance. I then repeated a second attempt and using Seldinger wire technique was able to get that catheter to nicely advanced. It was connected to pressure tubing. It was secured to skin with 3-0 silk. OpSite dressing and Tito wrap was applied. There were no apparent complications. Blood loss was minimal. She tolerated the procedure well. Hand was viable to completion with good waveform. The patient was taken to the operating room. She was placed supine on the table. She underwent general endotracheal intubation anesthesia. Ancef 2 g given intravenously preoperatively. The right neck was sterilely prepped and draped. An oblique incision was made along the anterior border of the sternocleidomastoid. Sharp dissection carried down through the subcutaneous tissue. The sternocleidomastoid was reflected laterally. Because of the patient's body habitus and thick neck dissection was performed quite deeply. The ansa cervicalis was identified and carefully retracted. The vagus nerve eventually identified. The hypoglossal nerve identified and carefully protected. This dissection actually all was quite tedious due to the depth of the process. I was able to find the common carotid carotid bulb. Got into the circumferential control of the common carotid with a Field tie Dacron tape stents dissected on the internal carotid placed a Dacron tape and Dionicio tourniquet get circumferential control of the external carotid with a vessel loop and of the superior thyroid with a 3-0 Vicryl. The patient received 10,000 units of heparin based upon weight. After adequate stripping time peripheral vascular clamps were placed of the internal common and external carotid 11 blade was used to make an arteriotomy was extended with Field scissors. A #10 USCI style shunt was placed cephalad and proximally. The plaque was sharply transected proximally. It was actually the proximal part of the control that was by far the most difficult. Patient had to circumferentially completely calcified vessel. I extended the dissection little bit more proximally on the common carotid several times in order to find again in location I could get sharply around the plaque and get a smooth transection. Then it was able to nicely elevate the plaque at the internal carotid with a nice feathering and an inversion antrectomies form of the external carotid. Further debris was carefully removed. A single tacking suture of 7-0 Prolene was placed at the internal carotid. A Hemashield Vascu-Guard graft [id number] and. PN number [id number] with a lot number of [id number] was selected. I shaped that the form it was 0.8 x 8 cm trimmed it to make it more narrow performed a patch angioplasty with a running 6-0 Prolene prior to completion the vessel was irrigated the shunt was then removed good adequate backflow from the internal carotid common carotid and external carotid was achieved the patch angioplasty was completed initial flow was instituted from the external carotid and common carotid from the internal carotid. Several repair sutures were required particularly at the proximal common carotid with interrupted 7 oh [id number] sutures to obtain complete hemostasis. I was able to obtain complete hemostasis appeared to be good positioning Y of the common carotid internal carotid. It is of note that the plaque dissection was rather prolonged so as patient did receive an X of 1000 units heparin during the endarterectomy procedure. Now having hemostasis the patient received 30 mg of protamine. She is on aspirin and Plavix preoperatively. All tissues were still oozy so I then assured that I had surgical hemostasis I placed FloSeal in the wound we held pressure. The neck was then closed with a running 3-0 Vicryl platysmal stitch. The skin edges were approximated running subcuticular suture of 5-0 Vicryl. The kaelyn- incisional area was anesthetized with 10 cc of 0.5% Marcaine. Steri-Strips Telfa and tape dressings applied. Sponge and instrument and needle counts were reported the surgeon be correct. Specimen is a plaque. Drains none. Blood loss 300 cc. She seemed to awake neurologically intact and was taken to the recovery area in satisfactory condition. Mario Burch M.D., F.A.C.S. Type of Anesthesia:: General Anesthesiologist: Terell May
--- NOTE | 2018-06-24 08:00 | PLAQ_PTH ---
PATIENT: NASIM OLIVA LOC: MS3 U#:[id number] AGE/SX: 57/F ROOM: MS321 RE06/24/[address]: Dr. Mario Burch MD : 1960 BED: 1 DIS: 06/25/2018 SPEC #: [id number] RECD: 06/24/18 12:28 STATUS: JASON REEdyta #: [id number] HAFSA: 06/24/18 08:[address]: Mario Burch DEPT: SURGICAL PATHOLOGY RECD BY: Abdelrahman Aleman ENTERED: 06/24/18 13:13 SP TYPE: PLAQUE OTHR DR: Dr. Jack Juarez, Tissues: PLAQUE Procedures: Decalcification bone/plaque Surgery Specimen Level III HEADER OPERATION: Carotid endarterectomy, right with patch angioplasty PRE-OP DIAGNOSIS: Carotid stenosis, right TISSUE SUBMITTED: Carotid plaque MICROSCOPIC DIAGNOSIS Carotid plaque, carotid endarterectomy: Atherosclerotic tissue with focal calcifications (plaque). SJ:akin 06/28/18 GROSS DESCRIPTION Received in fixative is one container labeled with the patient's name and designated carotid plaque. The specimen consists of multiple irregular and indurated fragments of yellow plaque-like material that in aggregate measure 2.2 x 1 x 0.6 cm. The specimen is sectioned and totally submitted in one cassette after decalcification. / AM:akin 06/24/18 TC:5 CPT: 39721, 96128
[2018-06-24] MEDS: Cefazolin 2 GM in 0.9% Normal Saline 100 ML IV (08:03)
[2018-06-24] MEDS: Heparin Injection (Vial) 5,000 UNIT/ML VIAL 5000 UNIT (08:21)
[2018-06-24] MEDS: Bupivacaine Mpf 0.5% 30 ML VIAL (11:05)
[2018-06-24 11:46] LABS: Bedside Glucose 67 mg/dL (70-110)
[2018-06-24 12:06] LABS: Bedside Glucose 210 mg/dL (70-110)
[2018-06-24] MEDS: Lactated Ringers 1,000 ML 30 ML IV (16:06)
[2018-06-24 17:12] LABS: Bedside Glucose 170 mg/dL (70-110)
[2018-06-24] MEDS: Cefazolin 1 GM/50 ML BAG IV ×2 (17:34→23:59)
[2018-06-24] MEDS: Oxybutynin 5 MG Tablet PO ×2 (17:40→21:36)
--- NOTE | 2018-06-24 17:42 | PCM.PN.BLA ---
Progress Note Right neck supple Neuro intact Still on oxygen, needs to be OOB stressing pulmonary toilet
[2018-06-24] MEDS: ALPRAZolam 0.5 MG Tablet PO (21:36)
[2018-06-24] MEDS: Lisinopril 20 MG Tablet PO (21:36)
[2018-06-24] MEDS: Ranolazine 500 MG Tablet PO (21:36)
[2018-06-24] MEDS: Atorvastatin Calcium 40 MG Tablet PO (21:36)
[2018-06-24] MEDS: buPROPion 75 MG Tablet PO (21:36)
[2018-06-24] MEDS: Carvedilol 6.25 MG Tablet PO (21:37)
[2018-06-24 22:16] LABS: Bedside Glucose 183 mg/dL (70-110)
[2018-06-25] MEDS: HYDROcodone Bitartrate/Apap 5/325 Tablet PO ×2 (01:06→14:57)
[2018-06-25 02:00] VITALS: BP 116/49; PULSE 61; RESP 16; TEMP 36.8; O2SAT 99
--- NOTE | 2018-06-25 05:59 | PCM.PN.SRG ---
Patient Problems: Active and Suspected Problems (Last Reviewed 06/17/18 @ 09:37 by Donna Choi) Carotid stenosis, right (Acute) - Physical Exam General: Alert, Oriented x3, Cooperative Neck: Supple Cardiovascular: Regular rate, Regular Rhythm Vital Signs Temp Pulse Resp BP Pulse Ox 98.3 F 61 16 116/49 L 99 06/25/18 02:00 06/25/18 02:00 06/25/18 02:00 06/25/18 02:00 06/25/18 02:00 Oxygen Flow Rate (L/min) 1 Oxygen Delivery Method Nasal Cannula Weight: 211 lb 6.773 oz Body Mass Index (BMI) 36.3 Intake and Output for Last 24 Hours 06/23/18 06/24/18 06/25/18 23:59 23:59 23:59 Intake Total 1740 / 1740 558 / 558 Output Total 100 / 100 Balance 1640 / 1640 558 / 558 POC Glucose 06/24/18 06/24/18 06/24/18 21:31 17:03 12:00 POC Glucose 183 H 170 H 210 H 06/24/18 06/24/18 11:10 06:19 POC Glucose 67 L 110 Medical Necessity - Tobacco Use Smoking Status: Former smoker Assessment/Plan All Active Problems (Last Reviewed 06/17/18 @ 09:37 by Donna Choi) Anemia (Acute) Carotid stenosis, right (Acute) Carotid stenosis, bilateral (Acute) Syncopal episodes (Acute) Still on oxygen and may need to go home with same today Mobilize pt and stress IS
[2018-06-25] MEDS: 0.9% NaCl Peripheral Flush Adult/Peds IV (06:32)
[2018-06-25] MEDS: Oxybutynin 5 MG Tablet PO ×2 (06:32→14:20)
[2018-06-25 07:11] LABS: Bedside Glucose 110 mg/dL (70-110)
[2018-06-25 08:00] VITALS: BP 132/49; PULSE 60; RESP 16; TEMP 37.3; O2SAT 97
[2018-06-25] MEDS: Ferrous Sulfate 325 MG Tablet PO (08:25)
[2018-06-25] MEDS: Aspirin E.C. 81 MG Tablet PO (08:25)
[2018-06-25] MEDS: FLUoxetine 20 MG Capsule 40 MG PO (08:26)
[2018-06-25] MEDS: Carvedilol 6.25 MG Tablet PO (08:26)
[2018-06-25] MEDS: Ranolazine 500 MG Tablet PO (08:26)
[2018-06-25] MEDS: Lisinopril 20 MG Tablet PO (08:26)
[2018-06-25] MEDS: Pantoprazole Sodium 40 MG Tablet PO (08:26)
[2018-06-25] MEDS: hydroCHLOROthiazide 25 MG Tablet PO (08:26)
[2018-06-25] MEDS: buPROPion 75 MG Tablet PO (08:26)
[2018-06-25] MEDS: Isosorbide Mononitrate 60 MG Tablet PO (08:27)
[2018-06-25 11:00] VITALS: O2SAT 85
[2018-06-25 11:41] LABS: Bedside Glucose 177 mg/dL (70-110)
--- NOTE | 2018-06-25 13:20 | CASEMGMT ---
TANVI THOMAS Face to Face with patient for initial transition planning/care coordination assessment. RN WILLIAM introduced self and role at [facility]. Patient sitting in chair, alert and oriented. Patient willing to participate in assessment and is able to answer all questions appropriately. Care providers, pharmacy, and demographics verified. Patient wishes to discharge home, denies need for home health at this time. Patient states she has no further needs or concerns at this time. CM to follow for discharge planning needs that may arise. PCP: Cha Specialists: Follows with merchandise supervisor that comes to [place]. Patient call him Dr. Zhong Preferred Pharmacy: [facility] Insurance: [facility] Prescription Benefit: yes Living Will/HPOA: None LNOK: Living Arrangements: Patient lives with in mobile home with 4 steps to enter home. Patient states she is independent at home. Transportation: DME/HHC: Patient states she has a cane at home. Denies use of oxygen, bipap, cpap, nebulizer at home. Patient had HHC several years ago but not sure of company. Denies need for HHC at this time. Disposition Plan: Patient to discharge home with family support and follow-up plans in place. Shaye WINTERS, RN, CM
[2018-06-25 14:00] VITALS: BP 137/53; PULSE 64; RESP 18; TEMP 36.8; O2SAT 95
== END 2018-06-25 15:01 | disposition home or self-care (01) | DRG 39 ==
PROVIDERS: Anesthesiology; Admitting Provider Surgery; Family Provider Student in an Organized Health Care Education/Training Program; PCP Student in an Organized Health Care Education/Training Program; Referring Provider Surgery; Visit Provider Surgery
PROC: 03CH0ZZ Extirpation of Matter from Right Common Carotid Artery, Open Approach (ICD-10-PCS; CPT 35301; principal; 2018-06-24 07:40)
DX: I65.21 Occlusion and stenosis of right carotid artery (principal); I10 Essential (primary) hypertension; E11.9 Type 2 diabetes mellitus without complications; E78.00 Pure hypercholesterolemia, unspecified; F32.9 Major depressive disorder, single episode, unspecified; K21.9 Gastro-esophageal reflux disease without esophagitis; Z79.4 Long term (current) use of insulin; Z79.01 Long term (current) use of anticoagulants; Z79.82 Long term (current) use of aspirin; Z79.899 Other long term (current) drug therapy; Z87.891 Personal history of nicotine dependence
CPT/HCPCS: 36415; 80048; 80076; 82962; 83036; 85027; 85610; 85730; 88304; 88311; 93005; J7040; J7120; A4216; J2405

== ENCOUNTER → 2018-07-23 09:44 | Outpatient (CLI) | payer MEDICARE, MEDICAID, SELFPAY ==
[2018-06-24 15:32] VITALS: BMI 36.3
--- NOTE | 2018-07-23 09:55 | CDUL_ITS ---
Reason For Study: Carotid Stenosis Rt. Velocities/BP Prox CCA 139/18.7 cm/sec. Mid CCA 97.2/13.8 cm/sec. Dist CCA 74.6/16.5 cm/sec. Prox ICA 76.8/19.3 cm/sec. Mid ICA 93.8/25.8 cm/sec. Dist ICA 99.1/28.1 cm/sec. Rt. ICA/CCA = 1.02. Prox ECA 194/10.5 cm/sec. Rt. Vert. 55.8/14.1 cm/sec. Right Extracranial There is heterogeneous, irregular atherosclerotic plaque noted in the right common carotid artery. There is heterogeneous, smooth atherosclerotic plaque noted in the right internal carotid artery. There is heterogeneous, irregular atherosclerotic plaque noted in the right external carotid artery. Antegrade flow is noted in the right vertebral artery. Procedure Carotid Duplex [id number]. Exam performed in department. Interpretation Summary Extensive calcific irregular plague right proximal common carotid artery Post operative changes of the right carotid bulb and internal carotid with <50% stenosis right internal carotid Moderate disease right external carotid approaching 50% stenosis Patent and antegrade right vertebral Ordering Physician: Mario Burch Referring Physician: Mario Burhc Performed By: Sly Pete RVT and Student
== END ==
PROVIDERS: Family Provider Student in an Organized Health Care Education/Training Program; PCP Student in an Organized Health Care Education/Training Program; Referring Provider Surgery; Visit Provider Surgery
DX: I65.21 Occlusion and stenosis of right carotid artery (principal)
CPT/HCPCS: 93882

== ENCOUNTER → 2020-01-15 08:29 | Outpatient (CLI) | payer MEDICARE, MEDICAID, SELFPAY ==
[2018-06-24 15:32] VITALS: BMI 36.3
--- NOTE | 2020-01-15 08:33 | CDU_ITS ---
Reason For Study: Carotid stenosis Rt. Velocities/BP Lt. Velocities/BP Prox CCA 143/11.5 cm/sec. Prox CCA 99.2/18.8 cm/sec. Mid CCA 80.5/13.5 cm/sec. Mid CCA 84.9/14.6 cm/sec. Dist CCA 87.1/11.3 cm/sec. Dist CCA 91.5/20.1 cm/sec. Prox ICA 84.6/11.5 cm/sec. Prox ICA 211/59.1 cm/sec. Mid ICA 97.4/24.3 cm/sec. Mid ICA 249.8/55.9 cm/sec. Dist ICA 108.3/26.1 cm/sec. Dist ICA 55.6/12.6 cm/sec. Rt. ICA/CCA = 1.24. Lt. ICA/CCA = 2.73. Prox ECA 158.7/9.4 cm/sec. Prox ECA 97.4/6.5 cm/sec. Rt. Vert. 70/17 cm/sec. Lt. Vert. 42.1/9 cm/sec. Right Extracranial There is heterogeneous, irregular atherosclerotic plaque noted in the right common carotid artery. There is homogeneous, smooth atherosclerotic plaque noted in the right internal carotid artery. There is homogeneous, irregular atherosclerotic plaque noted in the right external carotid artery. Antegrade flow is noted in the right vertebral artery. Left Extracranial There is heterogeneous, irregular atherosclerotic plaque noted in the left common carotid artery. There is heterogeneous, irregular atherosclerotic plaque noted in the left internal carotid artery. There is homogeneous, smooth atherosclerotic plaque noted in the left external carotid artery. Antegrade flow is noted in the left vertebral artery. Procedure Carotid Duplex [id number]. Exam performed in department. Interpretation Summary Calcific plaque right mid and distal common carotid Postoperative changes right carotid bulb and proximal internal carotid <50% stenosis right internal carotid <50% stenosis right external carotid Calcific plaque left mid and distal common carotid Postoperative changes left carotid bulb and proximal internal carotid >70% stenosis left internal carotid Patent and antegrade vertebrals bilaterally No change right internal carotid with progression of disease left internal carotid from the previous study of January 31, 2018 Ordering Physician: Mario Burch Referring Physician: Jack Juarez Performed By: Shaye Stubbs RVT
== END ==
PROVIDERS: PCP Student in an Organized Health Care Education/Training Program; Referring Provider Surgery; Visit Provider Surgery
DX: I65.23 Occlusion and stenosis of bilateral carotid arteries (principal)
CPT/HCPCS: 93880